=== PATIENT | male | born 1965 | race Caucasian/White ===

== ENCOUNTER 2016-11-02 17:42 | Emergency (ER) | payer OTHER ==
[2016-11-02 17:51] VITALS: BMI 25.0
[2016-11-02 17:52] VITALS: RESP 18; TEMP 98.6
[2016-11-02] MEDS ORDERED: Tetracaine 0.5% Ophth (OR ONLY) ONE (18:35)
[2016-11-02] MEDS ORDERED: Tobramycin 0.3% OPH OINT OD STA (18:43)
--- NOTE | 2016-11-02 18:47 | C.PDOC ---
History Of Present Illness 51 y/o male presents to the ED with complaints of right eye pain x1 day. Pt states he was fixing something on the ceiling and got debris in his eye. Pt reports foreign body sensation and woke up today with crust and redness to the eye. Denies changes in vision, fever, head trauma or any other complaints. Time Seen by Provider: 11/02/16 18:20 Chief Complaint (Nursing): ENT Problem History Per: Patient History/Exam Limitations: no limitations Onset/Duration Of Symptoms: Hrs Current Symptoms Are (Timing): Still Present Severity: Mild Quality: "Pain" Wears Contact Lens?: No Associated Symptoms: FB Sensation. denies: Decreased Vision Recent travel outside of the [place]: No Past Medical History Reviewed: Historical Data, Nursing Documentation, Vital Signs Vital Signs: Last Vital Signs Temp 98.6 F 11/02/16 17:51 Pulse 69 11/02/16 19:08 Resp 18 11/02/16 19:08 BP 120/72 11/02/16 19:08 Pulse Ox 97 11/02/16 22:57 Family History: States: Unknown Family Hx - Social History Hx Tobacco Use: Yes (15 years) Hx Alcohol Use: Yes Hx Substance Use: No - Immunization History Hx Tetanus Toxoid Vaccination: No Hx Influenza Vaccination: No Hx Pneumococcal Vaccination: No Review Of Systems Constitutional: Negative for: Fever, Chills Eyes: Positive for: Pain (right), Redness. Negative for: Vision Change Physical Exam - Physical Exam Appears: Non-toxic, No Acute Distress Skin: Warm, Dry, No Rash Head: Atraumatic, Normacephalic Eye(s): bilateral: PERRL, EOMI, right: Other ((+) mild injection and purulent discharge. fluoroscein uptake at 12 o'clock over the iris) Nose: Normal Oral Mucosa: Moist Neck: Normal ROM, Supple Chest: Symmetrical Respiratory: No Accessory Muscle Use Extremity: Bilateral: Atraumatic Neurological/Psych: Oriented x3, Normal Speech ED Course And Treatment O2 Sat by Pulse Oximetry: 97 (room air) Pulse Ox Interpretation: Normal Progress Note: Eye was irrigated. Lid flipped, no FB seen. Instructed patient to follow up with opthalmology in 1-2 days. Disposition - Disposition Referrals: Azar Barbosa MD [Staff Provider] - Disposition: HOME/ ROUTINE Disposition Time: 18:44 Condition: STABLE Additional Instructions: Follow up with primary medical doctor in 1-3 days without fail for further evaluation. Take medications as prescribed. Return to the emergency department at any time if symptoms persist or worsen. Prescriptions: Ofloxacin Ophth 0.3% [Ocuflox Ophth 0.3%] 2 drop OD Q4 5 Days Instructions: Corneal Abrasion (ED) - Clinical Impression Clinical Impression: Corneal abrasion - PA / HIP HOP ARTIST / Resident Statement MD/DO has reviewed & agrees with the documentation as recorded. - Scribe Statement The provider has reviewed the documentation as recorded by the Scribe Vinay lockhart All medical record entries made by the Rudolph were at my direction and personally dictated by me. I have reviewed the chart and agree that the record accurately reflects my personal performance of the history, physical exam, medical decision making, and the department course for this patient. I have also personally directed, reviewed, and agree with the discharge instructions and disposition.
[2016-11-02] MEDS ORDERED: Tobramycin 0.3% OPH OINT ONE (18:55)
[2016-11-02] MEDS ORDERED: Ophthalmic Irrigation, Soln ONE (18:56)
[2016-11-02 19:10] VITALS: BP 120/72; PULSE 69
[2016-11-02 20:34] VITALS: O2SAT 97
== END 2016-11-02 19:20 | disposition home or self-care (01) ==
LOC: C.ER 17:42 → SUPCPDRO 17:42 → C.ER 19:20
DX: S05.01XA Injury of conjunctiva and corneal abrasion without foreign body, right eye, initial encounter (principal); X58.XXXA Exposure to other specified factors, initial encounter

== ENCOUNTER 2018-07-10 11:51 | Emergency (ER) | payer OTHER ==
[2018-07-10 11:51] VITALS: BMI 25.0
[2018-07-10 12:05] VITALS: TEMP 97.8; O2SAT 96
[2018-07-10 13:21] LABS: BASO # 0.1 K/uL (0.0-0.2); BASO % 1.1 % (0.0-2.0); EOS # 0.1 K/uL (0.0-0.7); EOS % 2.5 % (0.0-4.0); HEMOGLOBIN 16.3 g/dL (12.0-18.0); LYMPH # 2.1 K/uL (1.0-4.3); LYMPH % 37.4 % (20.0-40.0); MEAN CELL VOLUME 92.7 fL (80.0-94.0); MEAN CORPUSCULAR HEMOGLOBIN 31.4 pg (27.0-31.0); MEAN CORPUSCULAR HGB CONC 33.9 g/dL (33.0-37.0); MEAN PLATELET VOLUME 9.2 fL (7.2-11.7); MONO # 1.2 K/uL (0.0-0.8); MONO % 20.9 % (0.0-10.0); NEUT # 2.2 K/uL (1.8-7.0); NEUT % 38.1 % (50.0-75.0); NRBC % 0.1 % (0.0-2.0); PLATELET COUNT 290 K/uL (130-400); RED CELL DISTRIBUTION WIDTH 14.6 % (11.5-14.5); WHITE BLOOD COUNT 5.7 K/uL (4.8-10.8)
[2018-07-10 13:30] LABS: ALB/GLOB RATIO 1.2 (1.0-2.1); ALBUMIN 4.1 g/dL (3.5-5.0); ALT/SGPT 22 U/L (21-72); AST/SGOT 27 U/L (17-59); BLOOD UREA NITROGEN 15 mg/dL (9-20); CALCIUM 9.5 mg/dl (8.6-10.4); GFR NON-AFRICAN AMERICAN > 60
[2018-07-10 13:44] LABS: BANDS 1 % (0-2); LYMPHOCYTE 40 % (20-40); MONOCYTE 21 % (0-10); NEUTROPHIL 36 % (50-75); REACTIVE LYMPHOCYTES 2 % (0-0); TOTAL CELLS COUNTED 100
[2018-07-10 13:45] LABS: ANISOCYTOSIS SLIGHT; LARGE PLATELETS PRESENT; PLATELET ESTIMATE NORMAL (NORMAL)
--- NOTE | 2018-07-10 13:55 | RAD ---
Chest x-ray single frontal view HISTORY: Chest pain. Comparison: 04/22/2012 Findings: No focal infiltrate or effusion. Heart size within limits. Impression: No focal infiltrate or effusion.
--- NOTE | 2018-07-10 14:51 | C.PDOC ---
History Of Present Illness 53 year old male presents to the emergency department with complaints of upper back pain which began one week ago. Patient denies injury. States that the pain is sharp, and exacerbated by movement. Patient reports that the pain is ra diating to his left chest. He denies shortness of breath, cough. Time Seen by Provider: 07/10/18 12:17 Chief Complaint (Nursing): Chest Pain History Per: Patient History/Exam Limitations: no limitations Onset/Duration Of Symptoms: Other (1 week ago) Current Symptoms Are (Timing): Still Present Quality: Sharp, "Pain" Associated Symptoms: denies: Nausea, Dyspnea Exacerbating Factors: Movement Past Medical History Reviewed: Historical Data, Nursing Documentation, Vital Signs Vital Signs: Last Vital Signs Temp 97.8 F 07/10/18 12:03 Pulse 80 07/10/18 12:39 Resp 20 07/10/18 12:03 BP 119/76 07/10/18 12:03 Pulse Ox 96 07/10/18 12:03 - Medical History PMH: No Chronic Diseases Surgical History: No Surg Hx Family History: States: No Known Family Hx - Social History Hx Tobacco Use: Yes (15 years) Hx Alcohol Use: Yes Hx Substance Use: No - Immunization History Hx Tetanus Toxoid Vaccination: No Hx Influenza Vaccination: No Hx Pneumococcal Vaccination: No Review Of Systems Except As Marked, All Systems Reviewed And Found Negative. Constitutional: Negative for: Fever, Chills Cardiovascular: Positive for: Chest Pain. Negative for: Palpitations Respiratory: Negative for: Cough, Shortness of Breath Gastrointestinal: Negative for: Nausea, Vomiting, Abdominal Pain, Diarrhea Musculoskeletal: Positive for: Back Pain Physical Exam - Physical Exam Appears: Non-toxic, No Acute Distress Skin: Normal Color, Warm, Dry Head: Atraumatic, Normacephalic Eye(s): bilateral: Normal Inspection, PERRL, EOMI Nose: Normal Oral Mucosa: Moist Neck: Normal, Supple Chest: Symmetrical, No Tenderness Cardiovascular: Rhythm Regular, No Murmur Respiratory: Normal Breath Sounds, No Rales, No Rhonchi, No Wheezing Gastrointestinal/Abdominal: Soft, No Tenderness Back: Normal Inspection, No CVA Tenderness, No Vertebral Tenderness Extremity: Normal ROM Neurological/Psych: Oriented x3, Normal Speech, Normal Cognition ED Course And Treatment - Laboratory Results Result Diagrams: 07/10/18 13:12 07/10/18 13:12 Lab Results: Troponin I < 0.0120 ng/mL (0.00-0.120) 07/10/18 13:12 Total Bilirubin 0.4 mg/dL (0.2-1.3) 07/10/18 13:12 AST 27 U/L (17-59) 07/10/18 13:12 ALT 22 U/L (21-72) 07/10/18 13:12 Alkaline Phosphatase 88 U/L (38-126) 07/10/18 13:12 Total Protein 7.6 g/dL (6.3-8.3) 07/10/18 13:12 Albumin 4.1 g/dL (3.5-5.0) 07/10/18 13:12 Globulin 3.5 gm/dL (2.2-3.9) 07/10/18 13:12 Albumin/Globulin Ratio 1.2 (1.0-2.1) 07/10/18 13:12 ECG: Interpreted By Me, Viewed By Me Interpretation Of ECG: Normal sinus rhythm at 74bpm. PVC, T-wave inversion in lateral leads. O2 Sat by Pulse Oximetry: 96 (RA) Pulse Ox Interpretation: Normal Medical Decision Making Medical Decision Making: Plan: EKG CMP Troponin CBC CXR Toradol 30mg IVP Upon re-eval, patient's chest pain has resolved. Patient will f/u with cardiology and PMD outpatient. Disposition Counseled Patient/Family Regarding: Studies Performed, Diagnosis, Need For Followup, Rx Given - Disposition Referrals: Sherrill Velazquez MD [Staff Provider] - [facility] [Outside] Disposition: HOME/ ROUTINE Disposition Time: 17:00 Condition: STABLE Prescriptions: Methocarbamol [Robaxin] 500 mg PO BID 7 Days #18 tab Naproxen [EC-Naprosyn] 500 mg PO BID #10 tablet. Instructions: Chest Pain, Upper Back Pain Forms: [facility] (Polish), Work Excuse - POA Present On Arrival: None - Clinical Impression Clinical Impression: Chest pain, Back pain - Scribe Statement The provider has reviewed the documentation as recorded by the Scribe (Vickey Voss) Provider Attestation: All medical record entries made by the Scribe were at my direction and personally dictated by me. I have reviewed the chart and agree that the record accurately reflects my personal performance of the history, physical exam, medical decision making, and the department course for this patient. I have also personally directed, reviewed, and agree with the discharge instructions and disposition.
[2018-07-10 15:28] VITALS: BP 104/65; PULSE 66; RESP 18
== END 2018-07-10 15:28 | disposition home or self-care (01) ==
LOC: C.ER 11:51
DX: M54.89 Other dorsalgia (principal); R07.9 Chest pain, unspecified
CPT/HCPCS: 71045; 80053; 84484; 85025; 93005; 96374; 99284; J1885